=== PATIENT | female | born 1950 | race Caucasian/White ===

== ENCOUNTER → 2025-04-14 10:14 | Outpatient (BNVA) | payer MEDICARE, SELFPAY | PROVIDERS: PCP Family Medicine; Referring Provider Family Medicine; Visit Provider Internal Medicine | DX: H57.9 Unspecified disorder of eye and adnexa (principal); E06.3 Autoimmune thyroiditis; E07.9 Disorder of thyroid, unspecified; R63.5 Abnormal weight gain | CPT/HCPCS: 99204 ==